=== PATIENT | male | born 1950 | race Caucasian/White ===

== ENCOUNTER 2021-03-07 13:07 | Outpatient (REF) | payer MEDICARE, SELFPAY ==
[2021-03-07 13:54] LABS: COVID-19 Test Negative (Negative)
== END 2021-03-07 13:08 | disposition home or self-care (01) ==
LOC: HO.LAB 13:07
PROVIDERS: Visit Provider Internal Medicine
DX: Z20.822 Contact with and (suspected) exposure to COVID-19 (principal)
CPT/HCPCS: 36415; 87635; C9803